=== PATIENT | female | born 2005 | race Caucasian/White ===

== ENCOUNTER 2025-07-05 08:58 | Emergency (ER) | payer OTHER ==
[~2025-07-05] VITALS: Ht 167.6 cm; Wt 60.0 kg
[2025-07-05 09:04] VITALS: O2SAT 99
[2025-07-05] MEDS ORDERED: METH-653 MT (09:20)
[2025-07-05] MEDS: IBUPROFEN 600MG TABLET PO ONE (09:32)
[2025-07-05 10:17] VITALS: BP 100/45; PULSE 60; RESP 18; TEMP 36.7; O2SAT 99
== END 2025-07-05 10:26 | disposition home or self-care (01) ==
LOC: ER 09:23
DX: M54.9 Dorsalgia, unspecified (principal); R07.89 Other chest pain
CPT/HCPCS: 71045; 81025; 99283